=== PATIENT | female | born 1960 | race Caucasian/White ===

== ENCOUNTER → 2017-03-25 15:54 | Outpatient (CLI) | payer OTHER | END | disposition home or self-care (01) | LOC: D.CT 15:54 | DX: R10.84 Generalized abdominal pain (principal); J44.9 Chronic obstructive pulmonary disease, unspecified ==

== ENCOUNTER → 2017-07-30 17:03 | Outpatient (CLI) | payer OTHER | END | disposition home or self-care (01) | LOC: D.MAMMO 07-13 13:00 | DX: Z12.31 Encounter for screening mammogram for malignant neoplasm of breast (principal) ==

== ENCOUNTER → 2018-08-13 08:27 | Outpatient (CLI) | payer OTHER | END | disposition home or self-care (01) | LOC: D.CT 08-12 08:30 | DX: R63.4 Abnormal weight loss (principal) ==

== ENCOUNTER 2019-04-18 05:42 | Day surgery (SDC) | payer OTHER ==
[~2019-04-18] VITALS: Ht 175.3 cm; Wt 50.5 kg
[2019-04-18 06:27] LABS: CALC OSMOLALITY 283 mosm/kg (275-300); CALCIUM 9.2 mg/dL (8.5-10.1); CARBON DIOXIDE 29.1 mmol/L (21.0-32.0); CHLORIDE - SERUM 105 mmol/L (98-107); CREATININE - SERUM 0.8 mg/dL (0.6-1.3); GLUCOSE 91 mg/dL (74-106); POTASSIUM - SERUM 4.3 mmol/L (3.5-5.1); SODIUM 143 mmol/L (136-145); UREA NITROGEN 11 mg/dL (7-18); eGFR NON AFRICAN AMERICAN 78 mL/min (90-120)
[2019-04-18 06:29] LABS: HEMATOCRIT 43.3 % (36.0-48.0); HEMOGLOBIN 14.9 g/dL (12-16); MCH 33.4 pg (26.0-34.0); MCHC 34.4 g/dL (31.0-37.0); MCV 97.1 fL (80.0-100.0); MEAN PLATELET VOLUME 10.5 fL (7.4-10.4); RBC 4.46 10x6/uL (4.00-5.40); RDW 12.2 % (11.5-14.5); WBC 9.3 10x3/uL (4.8-10.8)
[2019-04-18] MEDS ORDERED: PERCOCET 10-321 EAC1 PO (07:02)
[2019-04-18] MEDS ORDERED: AMBIEN10 MG PO (07:02)
[2019-04-18] MEDS ORDERED: COMBIVENT RESPIM4 GM INH (07:02)
[2019-04-18] MEDS ORDERED: LEXAPRO20 MG PO (07:04)
[2019-04-18] MEDS ORDERED: LISINOPRIL5 MG PO (07:04)
[2019-04-18] MEDS ORDERED: MARINOL5 MG PO (07:05)
[2019-04-18 07:13] VITALS: BP 128/85; Ht 175.3 cm; Wt 50.5 kg
--- NOTE | 2019-04-18 14:47 | OP ---
PATIENT NAME: ARI MENDEZ MEDICAL RECORD: [id number] :58 LOCATION:[facility] ADMISSION DATE: SURGEON: RENÉ CUELLAR DO DATE OF OPERATION: 04/18/2019 PROCEDURE: Colonoscopy with polypectomy. INDICATIONS FOR PROCEDURE: Positive stool guaiac, abnormal weight loss. SCOPE: Olympus video pediatric colonoscope. MEDICATIONS: Propofol 950 mg IV per anesthesia. WITHDRAWAL TIME: 55 minutes. ESTIMATED BLOOD LOSS: Minimal. COMPLICATIONS: None. FINDINGS: Informed consent was given. The patient was made comfortable with the above medication. After reaching an adequate level of sedation by slow IV push, the patient was placed on her left side. A digital rectal examination was performed and revealed some external hemorrhoids. The endoscope was advanced under direct visualization through the rectum to the cecum, confirmed by the presence of the appendiceal orifice and ileocecal valve. The endoscope was slowly withdrawn and mucosa was carefully examined. The prep quality was good. There were multiple polyps visualized on today's examination. The first was located in the ascending colon. There was a benign-appearing flat polyp, which measured approximately 1.2 cm in size. It was consistent with a sessile serrated adenoma. Endoscopic mucosal resection was attempted with the injection of Eleview to lift the base of the polyp up. A snare was used to remove the polyp and due to positioning could only snare resect approximately half of the polyp. The remainder of the polyp was removed using hot forceps and any residual tissue was cauterized. There were 2 benign appearing polyps located in the descending colon. They were both sessile and measured approximately 3-5 mm in diameter. They were removed using hot snare. In the sigmoid colon, there were 6 separate benign appearing polyps. They were all sessile and ranged in size from 3-5 mm in diameter. They were all removed using a hot snare. There was evidence of mild diverticulosis involving the sigmoid colon. Retroflexion was performed in the rectum with visualization of grade II internal hemorrhoids without active bleeding. The endoscope was withdrawn from the patient. The patient tolerated the procedure well and there were no complications. IMPRESSION: 1. Multiple polyps as described above, removed using a combination of a hot snare and hot forceps as well as EMR technique. 2. Mild diverticulosis of the sigmoid colon. 3. Internal and external hemorrhoids without bleeding. PLAN AND RECOMMENDATIONS: 1. Discharge home when recovery parameters are met. 2. Follow up biopsy specimen results. 3. High fiber diet. 4. Continue current medications. 5. Recall colonoscopy in approximately 1 year due to piecemeal resection of a OPERATIVE REPORT [id number] ARI MENDEZ sessile serrated adenoma in the ascending colon. TRANSINT:[id number] Voice Confirmation ID: [id number] DOCUMENT ID: [id number] RENÉ CUELLAR DO at 1447 CC: [id number] DICTATION DATE: 04/18/19939 DOCENT COORDINATOR: 04/18/19 1104 [facility] 04/18/19 [facility] [address] [place] [address]
== END 2019-04-18 11:00 | disposition home or self-care (01) ==
LOC: D.OPS 05:42
PROVIDERS: Anesthesiology; ATTEND Internal Medicine Gastroenterology
DX: K63.5 Polyp of colon (principal); K57.30 Diverticulosis of large intestine without perforation or abscess without bleeding; K64.1 Second degree hemorrhoids; K64.4 Residual hemorrhoidal skin tags; Z01.812 Encounter for preprocedural laboratory examination

== ENCOUNTER → 2019-06-08 13:00 | Outpatient (CLI) | payer OTHER ==
[2019-04-18 07:13] VITALS: BMI 16.4
[~2019-06-08 13:00] MED LIST: AMBIEN10 MG PO; COMBIVENT RESPIM4 GM INH; LEXAPRO20 MG PO; LISINOPRIL5 MG PO; MARINOL5 MG PO; PERCOCET 10-321 EAC1 PO
== END | disposition home or self-care (01) ==
LOC: D.MAMMO 13:00
PROVIDERS: ATTEND Family Medicine Adult Medicine
DX: T85.49XA Other mechanical complication of breast prosthesis and implant, initial encounter (principal)

== ENCOUNTER 2021-04-23 19:58 | Emergency (ER) | payer OTHER ==
[~2021-04-23] VITALS: Ht 175.3 cm; Wt 45.5 kg
[~2021-04-23 19:58] MED LIST changes: +FLAGYL500 MG PO; +LEVAQUIN750 MG PO; +LIPITOR20 MG PO; +NICODERM CQ1 EAC3 TOPICAL; +TRAZODONE HCL50 MG PO; +ZOLOFT25 MG PO; +ZYPREXA10 MG PO
[2021-04-23 20:18] VITALS: Ht 175.3 cm; Wt 45.5 kg
[2021-04-23 20:43] LABS: BASOPHILS 0.8 % (0-2); EOSINOPHILS 0.2 % (0-7); HEMATOCRIT 46.4 % (36.0-48.0); HEMOGLOBIN 15.1 g/dL (12-16); LYMPHOCYTES 27.2 % (15-50); MCH 31.5 pg (26.0-34.0); MCHC 32.5 g/dL (31.0-37.0); MCV 96.6 fL (80.0-100.0); MEAN PLATELET VOLUME 9.4 fL (7.4-10.4); MONOCYTES 8.8 % (2-11); PLATELET COUNT 172 10x3/uL (130-400); RDW 13.5 % (11.5-14.5)
[2021-04-23 20:55] LABS: CALC OSMOLALITY 287 mosm/kg (275-300); CALCIUM 8.8 mg/dL (8.5-10.1); CARBON DIOXIDE 27.7 mmol/L (21.0-32.0); CHLORIDE - SERUM 106 mmol/L (98-107); CREATININE - SERUM 0.9 mg/dL (0.6-1.3); GLUCOSE 122 mg/dL (74-106); POTASSIUM - SERUM 3.3 mmol/L (3.5-5.1); SODIUM 144 mmol/L (136-145); UREA NITROGEN 12 mg/dL (7-18); eGFR NON AFRICAN AMERICAN 67 mL/min (90-120)
[2021-04-23 21:04] LABS: MAGNESIUM - SERUM 1.8 mg/dL (1.8-2.4)
[2021-04-23 21:07] LABS: ALBUMIN 3.6 g/dL (3.4-5.0); ALKALINE PHOSPHATASE 47 U/L (30-120); ALT (SGPT) 14 U/L (10-68); BILIRUBIN - TOTAL 0.44 mg/dL (0.2-1.3); LIPASE 67 U/L (73-393); PROTEIN - SERUM 6.4 g/dL (6.4-8.2)
[2021-04-23 21:08] LABS: TROPONIN-I < 0.017 ng/mL (0.000-0.060)
[2021-04-23 21:08] LABS: BILIRUBIN NEGATIVE (NEGATIVE); KETONE NEGATIVE (NEGATIVE); NITRITE NEGATIVE (NEGATIVE); UROBILINOGEN NORMAL mg/dL (< 2)
[2021-04-23 21:09] LABS: BACTERIA MODERATE HPF (NONE SEEN); SQUAMOUS EPITHELIAL 0-5 HPF (0-4); WHITE CELLS - URINE 0-5 HPF (0-4)
[2021-04-23] MEDS ORDERED: ZOFRAN ODT4 MG/UDTAB PO (21:42)
[2021-04-23 22:26] LABS: UDS - AMPHET NEGATIVE QUAL (NEGATIVE); UDS - BARB NEGATIVE QUAL (NEGATIVE); UDS - BENZO NEGATIVE QUAL (NEGATIVE); UDS - COCAINE NEGATIVE QUAL (NEGATIVE); UDS - OPIATE NEGATIVE QUAL (NEGATIVE); UDS - PCP NEGATIVE QUAL (NEGATIVE); UDS - THC POSITIVE QUAL (NEGATIVE)
[2021-04-23] MEDS ORDERED: MORPHINE IMMEDI15 MG PO (22:35)
[2021-04-23 22:45] VITALS: BP 119/77
== END 2021-04-23 22:45 | disposition home or self-care (01) ==
LOC: D.ER 19:58
PROVIDERS: Family Medicine
DX: R11.2 Nausea with vomiting, unspecified (principal); J44.9 Chronic obstructive pulmonary disease, unspecified; F11.23 Opioid dependence with withdrawal; I10 Essential (primary) hypertension; F17.210 Nicotine dependence, cigarettes, uncomplicated